=== PATIENT | female | born 2005 | race Caucasian/White ===

== ENCOUNTER 2025-02-01 16:54 | Emergency (ER) | payer BC, SELFPAY ==
[2025-02-01 17:00] VITALS: PULSE 100; RESP 18; TEMP 36.8; O2SAT 99; BMI 22.6
--- NOTE | 2025-02-01 17:13 | ED.ABDPAIN ---
HPI - Abdominal Pain General Chief Complaint: Abdominal Pain Stated Complaint: vomiting,nausea, right lower abd pain Time Seen by Provider: 02/01/25 17:29 History of Present Illness ED Provider: alpa SHEFFIELD narrative: Author / Clinician: Saúl Crespo MD (Emergency Medicine) History Chief Complaint Sharp, stabbing pain in the right upper abdomen. History of Present Illness 19-year-old female with a history of migraines (s/p appendectomy at age 12) presents with four days of sharp, stabbing pain located just below the right rib cage (right upper quadrant). Yesterday at lunch she coughed and the pain acutely worsened; since then it ?hurts to breathe? and to move her torso. Pain is reproducible with deep inspiration, coughing, stretching, torso rotation, and direct palpation over the RUQ. She notes a palpable ?lump? under the skin at the site of maximal tenderness. She experienced two episodes of emesis over the past week, none in the last 24 hours. Eating does not change the pain, though appetite is decreased because of discomfort. She denies fever, chills, skin color change, chest pain, shortness of breath, flank or back pain, epigastric or left-sided abdominal pain, urinary symptoms, recent alcohol or drug use, or recent injury. Last menstrual period was approximately one week ago. Past History Medical: Migraines, recurrent headaches. Surgical: Appendectomy at age 12. Medications: Fluoxetine (Prozac) 40 mg daily; Xulane transdermal contraceptive patch; Sumatriptan PRN for migraines. Allergies: Social & Family History Social: Denies recent alcohol or recreational drug use; no heavy drinking history reported. No recent injuries or strenuous activity disclosed. Family: Review of Systems ? Constitutional: Denies fever or chills. ? HEENT: Reports frequent headaches; no visual changes reported. ? Cardiovascular: Denies chest pain; no leg swelling. ? Respiratory: Pain with deep inspiration; denies shortness of breath. ? Gastrointestinal: Sharp RUQ abdominal pain; two episodes vomiting in past week; decreased appetite; denies change with eating, heartburn, or bowel changes. ? Genitourinary: LMP ~1 week ago; denies flank pain. ? Musculoskeletal: Pain reproduced by movement, coughing, and palpation; denies recent trauma. ? Dermatologic: Denies rash or skin color change. (No other systems reviewed.) Physical Examination Vital Signs: General Appearance: Alert, in mild distress from abdominal pain. Physical Exam: - Abdomen: Soft. Focal tenderness over the right upper quadrant just inferior to the costal margin; pain reproduced with deep inspiration and torso rotation. No tenderness in the epigastric, left lower quadrant, right lower quadrant, suprapubic, or flank regions. Patient reports a palpable lump under the skin at the site of maximal tenderness; on exam, no palpable mass or lump was appreciated on exam - Respiratory: Pain with deep breath; breath sounds not otherwise documented. Assessment & Plan 19-year-old female with acute on chronic right upper quadrant abdominal pain, worsened by movement and inspiration. Differential includes biliary colic/cholecystitis versus musculoskeletal abdominal wall strain. No systemic signs of infection. Problem #1: Right upper quadrant abdominal pain ? rule out gallbladder disease vs musculoskeletal strain Assessment: 4 days of RUQ pain, aggravated by cough and movement; focal RUQ tenderness on exam; no GI symptom correlation with meals; afebrile; no jaundice. Character and reproducibility suggest possible abdominal wall strain, but gallbladder pathology must be excluded. Plan: - Order right upper quadrant abdominal ultrasound to evaluate gallbladder. - If ultrasound negative, likely musculoskeletal abdominal wall strain; treat symptomatically. - Offer analgesia as needed; patient currently declines medication. - Re-evaluate following imaging results; provide discharge or additional work-up accordingly. Reassuring ultrasound, urinalysis not suggestive of UTI. Small amount of blood in the urine unlikely clinically relevant this does not sound like kidney stone pain and there was no hydronephrosis. Despite some pleuritic and musculoskeletal and positional pain I do not feel this is likely to represent PE there was no tachycardia she is on oral contraceptive but there was no true respiratory signs tachypnea tachycardia clinical signs of DVT and she is quite tender on examination which is not suggestive of PE Problem #2: History of migraines Assessment: Chronic condition; managed with sumatriptan PRN. Plan: - Continue current regimen (sumatriptan PRN, Prozac daily, Xulane patch). - No changes made today. [Add additional problems as needed] Related Data Allergies Allergy/AdvReac Type Severity Reaction Status Date / Time No Known Allergies Allergy Verified 02/01/25 17:05 [facility], [facility] Social History Social History Smoked in Last 30 Days: No Use of substances other than those prescribed or required for medical reasons: No Advance Directives: No Advance Directives Information Provided: No Do you have a plan to hurt others: No Plan Patient : No Physical Exam ED Vital Signs: Vital Signs - 24 hr 02/01/25 17:00 02/01/25 19:22 02/01/25 19:35 Temperature 98.3 F 98.6 F 98.6 F Pulse Rate 100 78 78 Respiratory Rate 18 16 16 Blood Pressure 104/64 104/64 Pulse Oximetry 99 99 99 Oxygen Delivery Method Room Air Room Air Room Air BMI result Body Mass Index 22.6 Procedures Procedure Narrative Procedure Narrative: EMERGENCY ULTRASOUND INTERPRETATION- Limited Point of Care Biliary [This study was ordered, performed, and interpreted by myself. The study reveals: Impression: NO EVIDENCE OF ACUTE INFLAMMATION OF THE GALLBLADDER, NO EVIDENCE OF OBSTRUCTIVE BILIARY DISEASE right kidney without hydronephrosis] [Indication: RUQ PAIN Gallbladder: NO WALL THICKENING > 4MM, NO PERICHOLECYSTIC FLUID, NOT GROSSLY DILATED/HYDROPIC. -Additional: WALL MEASUREMENT: 1.4 mm CBD MEASURMENT IF OBTAINED: Less than 4 mm Performed by: Saúl Crespo MD Images were stored CPT:70903] Course Course Course Narrative: This is a Rapid Medical Examination (RME) performed by Aundrea Razo PA-C in triage. Full HPI, ROS, assessment and treatment plan per primary provider in the Main ED. Hx: 19 yo F here for eval of right sided abd pain x1 week. 2x vomiting in last 2 weeks. coughed yesterday, made pain worse. seen at - told to take a laxitive and pass BM, had a normal BM today. no urinary sx. s/p appendectomy. Plan: labs Medical Decision Making Lab Data 02/01/25 17:13 02/01/25 17:13 Labs: Lab Results 02/01/25 02/01/25 Range/Units 17:13 18:37 WBC 8.7 (4.8-10.8) X10*3/uL RBC 4.51 (4.20-5.50) X10*6/uL Hgb 12.9 (12.0-16.0) g/dl Hct 39.1 (37.0-47.0) % MCV 86.7 (80.0-98.0) fL MCH 28.6 (27.0-33.0) pg MCHC 33.0 (31.0-35.0) g/dl RDW 13.3 (11.0-16.0) % Plt Count 306 (160-400) X10*3/uL MPV 10.3 (9.4-12.3) fL Immature Gran % (Auto) 0.3 (0.0-0.4) % Neut % (Auto) 63.5 (45-73) % Lymph % (Auto) 26.9 (20-40) % Garrett % (Auto) 7.2 (2-11) % Eos % (Auto) 1.3 (0-4) % Baso % (Auto) 0.8 (0-2) % Lymph # (Auto) 2.3 (1.2-4.9) X10*3/uL Garrett # (Auto) 0.6 (0.1-1.2) X10*3/uL Eos # (Auto) 0.1 (0.0-0.4) X10*3/uL Baso # (Auto) 0.1 (0.0-0.2) X10*3/uL Abs Immat Gran (auto) 0.03 (0.00-0.03) X10*3/uL Absolute Neuts (auto) 5.5 (2.0-8.3) x10*3/uL Absolute Nucleated RBC 0.000 (0.0-0.012) X10*3/uL Nucleated RBC % (auto) 0.0 (0.0-0.2) /100WBC Sodium 137 (135-145) mmol/L Potassium 4.2 (3.3-5.1) mmol/L Chloride 107 (96-108) mmol/L Carbon Dioxide 26 (22-29) mmol/L Anion Gap 8 L (12-20) BUN 13 (9-16) mg/dL Creatinine 0.74 (0.5-1.4) mg/dL Estim Creat Clear Calc 99.5 Estimated GFR > 60 Random Glucose 108 (60-115) mg/dL Calcium 9.1 (8.4-10.2) mg/dL Magnesium 2.2 (1.6-2.6) mg/dL Total Bilirubin 0.3 (0.0-1.0) mg/dL AST 23 (5-31) U/L ALT 11 (0-31) U/L Alkaline Phosphatase 52 (39-117) U/L Total Protein 7.1 (6.5-8.0) g/dL Albumin 4.3 (3.5-5.0) g/dL Lipase 27 (8-78) U/L Beta HCG, Quant < 2 mIU/mL Urine Color Yellow Urine Appearance Cloudy Urine pH 8.0 (5.0-9.0) Ur Specific [place] 1.025 (1.005-1.025) Urine Protein Negative (Neg-Trace) mg/dL Urine Glucose (UA) Negative (Negative) mg/dL Urine Ketones Trace (Negative) mg/dL Urine Blood Small (1+) H (Negative) Urine Nitrite Negative (Negative) Ur Leukocyte Esterase Negative (Negative) Urine RBC 0-2 (0-2) /HPF Urine WBC 0-5 (0-5) /HPF Ur Squamous Epith Cells 0-2 (0-2) /HPF Urine Bacteria None Seen (None Seen) Hyaline Casts 0-2 (0-2) /LPF Urine Test NEGATIVE (NEGATIVE) Discharge Plan Discharge Clinical Impression: Abdominal pain Patient Disposition: Home, Self-Care Instructions: Abdominal Pain (ED) Additional Instructions: DISCHARGE DIAGNOSES: Right upper abdominal pain unclear cause possibly musculoskeletal strain HISTORY OF PRESENTATION: ?Pain worsening over the past few days worse with movement and cough.cara EMERGENCY DEPARTMENT COURSE,TESTS, TREATMENTS: While in the ED today Tender over the musculoskeletal and lateral upper abdomen. Reassuring urinalysis blood count and chemistry testing reassuring ultrasound of the gallbladder and right kid DISCHARGE MEDICATIONS: ?[We have made no changes to your regular medication regimen] FOLLOW-UP: ?Call your primary or general physician soon as possible to discuss your symptoms, your ED visit and to discuss follow up plans As we discussed you can call your PCP or student Health office for follow up to re-evaluate your pain in a few days INSTRUCTIONS ?& RETURN PRECAUTIONS: If any symptoms change first call your primary physician, if it is after-hours your primary doctors office should have a provider fashion model you can speak with. If the symptoms are severe or very concerning to you then call 911 or return to the ED. As we discussed return to the emergency department if your pain worsens you develop a fever if food begins exacerbating your pain or your unable to eat if you develop high fevers or burning or frequency with urination or other significant symptoms that we discussed as you may need further testing or diagnostics Saúl Crespo MD Emergency Physician [facility] Interventions: ED Discharge Assessment Last Done: 02/01/25 19:35 Discharge Date/Time: 02/01/25 19:36 Print Language: Gambian
[2025-02-01 17:17] LABS: MANUAL DIFF FLAG NO
[2025-02-01 17:23] LABS: Hematocrit 39.1 % (37.0-47.0); Hemoglobin 12.9 g/dl (12.0-16.0); Imm Gran Abs Auto 0.03 X10*3/uL (0.00-0.03); Imm Gran Pct Auto 0.3 % (0.0-0.4); Lymphocytes Absolute Auto 2.3 X10*3/uL (1.2-4.9); Mean Corpuscular HGB Conc 33.0 g/dl (31.0-35.0); Mean Corpuscular Hemoglobin 28.6 pg (27.0-33.0); Mean Corpuscular Volume 86.7 fL (80.0-98.0); NRBC Abs Auto 0.000 X10*3/uL (0.0-0.012); NRBC Pct Auto 0.0 /100WBC (0.0-0.2); Platelet Count 306 X10*3/uL (160-400); Red Blood Count 4.51 X10*6/uL (4.20-5.50); White Blood Count 8.7 X10*3/uL (4.8-10.8)
[2025-02-01 17:38] LABS: Alanine Aminotransferase 11 U/L (0-31); Albumin Level 4.3 g/dL (3.5-5.0); Alkaline Phosphatase 52 U/L (39-117); Anion Gap 8 (12-20); Aspartate Amino Transferase 23 U/L (5-31); Blood Urea Nitrogen 13 mg/dL (9-16); Calcium 9.1 mg/dL (8.4-10.2); Carbon Dioxide 26 mmol/L (22-29); Chloride 107 mmol/L (96-108); Creatinine Clr Calc Pharmacy 99.5; Estimated Glomerular Filt Rate > 60; Lipase 27 U/L (8-78); Magnesium 2.2 mg/dL (1.6-2.6); Potassium 4.2 mmol/L (3.3-5.1); Sodium 137 mmol/L (135-145); Total Protein 7.1 g/dL (6.5-8.0)
[2025-02-01 18:48] LABS: Appearance Urine Cloudy; Glucose Urine UA Negative (Negative); PH 8.0 (5.0-9.0); Specific Gravity - Urine 1.025 (1.005-1.025); UMIC TRIGGER UACC YES
[2025-02-01 18:50] LABS: UPreg QC Valid YES
--- OUTSIDE RECORDS SUMMARY | 2025-02-01 19:14 | XMS_ITS | Patient Health Record ---
Author Organization [facility] Billing Info Address [address] [place], [place] [address] Care Team Providers Care Ticket Counter Name Role Phone TOY SANDOVAL Primary Care Provider [phone] Allergies Allergen (clinical drug ingredient) Drug/Non Drug Allergy documented on EMR Reaction Allergy Type Onset Date Status Penicillin Unknown Drug Allergy Active Reason For Referral No Information Immunizations Vaccine Route Administration Date Status Comme nts zHPV - QUADRIVALENT (GARDASIL) - Documentation Only IM Intramuscular 03/02/2020 Administered STATE SUPPLY [place] zHPV - QUADRIVALENT (GARDASIL) - Documentation Only IM Intramuscular 07/06/2020 Administered state supply MENINGOCOCCAL CONJ - MCV4P (MENACTRA) IM Intramuscular 03/02/2020 Administered STATE SUPPLY [place] zFLU 4V (FLUZONE QUAD), 3 YRS+, NO PRES - ALL PAYORS IM Intramuscular 04/21/2017 Administered [id number] clinic supply xena parkinson HPV9 (GARDASIL 9) IM Intramuscular 12/30/2019 Administered state supply [employer] zFLU 4V (FLUZONE QUAD), 6MO+ (0.5 ML), NO PRES - ALL PAYORS IM Intramuscular 12/30/2019 Administered STATE SUPPLY [employer] Social History Tobacco Use: Social History Observation Description Date Details (start date - stop date) Never Smoker NA - NA Tobacco Status: Question Answer Notes Patient is a never smoker Problems Problem Type SNOMED Code ICD Code Onset Dates Problem Status W/U Status Risk Notes Problem 523549426 Seasonal allergies (J30.2) Active confirmed Problem 42924453 Bilateral impacted cerumen (H61.23) Active confirmed Problem 76899438 Irregular periods (N92.6) Active confirmed Problem 113187260 Wellness examination (Z00.00) Active confirmed Problem 411139865 Hearing difficulty, unspecified laterality (H91.90) Active confirmed Problem 295165620 Encounter for well child check without abnormal findings (Z00.129) Active confirmed Plan Of Treatment No Information Insurance Providers Payer Name Payer Address Payer Phone Subscriber Number Group Number Insured Name Patient Relationship to Insured Coverage Start Date Coverage End Date [employer] [id number]/188 [id number] [address] [place] [id number] ANDREW STEPHENS Self - patient is the insured 2 2 Medical (General) History Surgical History Surgery Date(Month/Year)
[2025-02-01 19:22] VITALS: BP 104/64; PULSE 78; RESP 16; TEMP 37; O2SAT 99
[2025-02-01 19:35] VITALS: BP 104/64; PULSE 78; RESP 16; TEMP 37; O2SAT 99
== END 2025-02-01 19:36 | disposition home or self-care (01) ==
PROVIDERS: Physician Assistant Medical; Emergency Provider Emergency Medicine; PCP Nurse Practitioner Family
DX: R10.11 Right upper quadrant pain (principal); R10.22 Pelvic and perineal pain left side; Z90.89 Acquired absence of other organs
CPT/HCPCS: 36415; 76705; 80053; 81001; 81025; 83690; 83735; 84702; 85025; 99284